=== PATIENT | female | born 1945 | race Caucasian/White ===

== ENCOUNTER 2017-01-06 07:56 | Observation (INO) | payer BC ==
[~2017-01-06] VITALS: Ht 165.1 cm; Wt 79.9 kg
--- NOTE | ~2017-01-06 | OP ---
Record Of Operation [facility] [address] [place]. [address] NAME: PEDRO GEE : 47 STATUS : ADM Irwin PAT#: [id number] AGE: 71 ADM/REG DATE : 01/06/17 MR#: [id number] REPORT SERV DATE: 01/06/17 DICTATED BY: FIONA MERINO DATE: 01/06/17 REPORT STATUS : Draft TRANSCRIBED BY: MODL DATE: 01/06/17 DATE OF PROCEDURE: 01/06/2017 PREOPERATIVE DIAGNOSIS: Recurrent hiatal hernia with dysphagia. POSTOPERATIVE DIAGNOSIS: Recurrent hiatal hernia with dysphagia. PROCEDURE: Laparoscopic redo hiatal hernia repair with mesh. RESIDENT: Francia. ANESTHESIA: General. ESTIMATED BLOOD LOSS: 10 mL. IV FLUIDS: 1500 mL. SPECIMENS: None. COMPLICATIONS: None. BRIEF HISTORY: Ms. Gee is a 71-year-old woman who had a laparoscopic hiatal hernia repair with Toupet fundoplication in [place] five years ago. She presented with a two-month history of progressive dysphagia. Endoscopy and barium swallow confirmed hiatal hernia. Laparoscopic redo repair was recommended. The procedure with the risks including bleeding, infection, injury to the vagus nerves causing decreased gastric emptying, dysphagia postop and recurrence were all explained. She agreed to proceed. DESCRIPTION OF PROCEDURE: After consent was obtained, she was taken to the operating room and placed in supine position on the operating table. General endotracheal anesthesia was administered. The abdomen was then prepped and draped in normal sterile fashion. Preoperative antibiotics were administered. SCDs were placed. Time-out was performed. We began by making an incision superior and left lateral to the umbilicus using a #15 blade scalpel. Electrocautery was then used to dissect through the subcutaneous tissues. Optiview technique was used to insert an 11 mm trocar. The abdomen was insufflated to 15 mmHg of CO2 gas. The scope was inserted. There was no evidence of injury upon placement of trocar. After infiltration of local anesthesia and under direct visualization, an 11 mm trocars placed in the medial left upper quadrant followed by a 5 mm trocar in the lateral left upper quadrant. Two 5 mm trocars were placed in the right upper quadrant. She was placed in reverse Trendelenburg position. Liver retractor was placed through the lateral 5 mm trocar on the right to elevate the left lobe of the liver. There were adhesions from the liver down to the stomach. We began by dissecting these adhesions away from the liver to expose the right katina. This was done sharply using scissors. Once the right katina was exposed, we were able to dissect Record Of Operation [facility] [address] [place]. [address] NAME: PEDRO GEE : 47 STATUS : ADM Irwin PAT#: [id number] AGE: 71 ADM/REG DATE : 01/06/17 MR#: [id number] REPORT SERV DATE: 01/06/17 DICTATED BY: FIONA MERINO JACQUELIN DATE: 01/06/17 REPORT STATUS : Draft TRANSCRIBED BY: MODL DATE: 01/06/17 into the mediastinum to some degree and identified the wrap that had slid into the back into the chest. She had a large hiatal defect. We then dissected along the right katina down dissecting the wrap away from the katina using combination of blunt dissection and electrocautery. Once we had done as much mobilization as possible in the site, we then proceeded to the left katina. We then retracted this stomach to the right and then dissected the wrap away from the left katina using sharp dissection. We then able to extend this into the mediastinum to free up the attachments at that site. We then worked on the posterior, which was the most adhered area. It was adhered densely and sutured to the right katina and the sutures were taken out using scissors and then the dissection was undertaken to dissect this away from the crural repair. Most of the failed repair was in the mid to superior aspect of the previous repair. The lower portion of the repair was still intact. Once it was completely dissected, we placed a Emelina drain around the esophagus within the chest and secured it anteriorly using clips and used this for retraction and back into the abdomen and anteriorly to free up the mediastinal adhesions to allow increased length on the esophagus. Once we had adequate length in the esophagus to be back in the abdomen, we inspected the posterior vagus nerve and it was intact. We did not confidently identify the anterior vagus nerve. Then turned our attention to the repair. We reapproximated the hiatus using two figure-of- eight 0 Ethibond sutures using the suture assist device. We placed the one single interrupted suture just beneath the esophagus to ensure that the hiatus was closed, yet there was still adequate space for the esophagus to expand at that site. We then fashioned a Strattice mesh 8 x 8 cm with a small keyhole and placed it within the abdomen. It was secured anteriorly to both the right and the left katina cephalad to the esophagus using 0 Ethibond sutures. We then inspected the wrap. The wrap that was previously placed was still intact and now it was back in the abdomen and appeared sufficient and it was not revised. We then removed all trocars and the Emelina drain under direct visualization. There was no evidence of bleeding. The abdomen was desufflated. All skin incisions were closed using a 4-0 Monocryl subcuticular stitch. The abdomen was cleaned and Dermabond was applied. The patient tolerated the procedure well and was extubated in the operating room and sent to the recovery room in stable condition. WG/MODL Fiona Merino MD / [id number] CC: Fiona Merino MD
[~2017-01-06 07:56] MED LIST: ANADS PO; ASAB PO; CALCIUM PO; CALCIUM/MAG/ZINC; CRAN CONC500 MG PO; DIABET1.25 PO; FERROUS SULF325 M1 PO; GLUCOPHAGE1000 MG PO; GLUCXL5; GLUCXL5 PO; LYRICA150 MG PO; MACROBID PO; MAG PO; MAX25 PO; MIRAPEX5 PO; MULTIVITAMI1 PO; NEUR100 PO; PCET PO; PLAVIX PO; POTASSIUM GLUCO99 MG PO; PREV30 PO; PRILOSEC40 MG PO; PRIN5 PO; RANITIDINE300 MG PO; REQUIP1 PO; STOOL SOFTEN100 MG PO; TRAZ50 PO; VESICARE5 PO; VITAMIN D1000 UNI1 PO; VITAMIN D31000 UNIT PO; ZOCOR20 PO
[2017-01-06 13:50] LABS: BASOPHILS 0.1 %; BASOPHILS ABSOLUTE 0.02 10/3/uL (0.0-0.16); EOSINOPHILS 0.4 %; EOSINOPHILS ABSOLUTE 0.06 10/3/uL (0.0-0.53); HEMATOCRIT 34.4 % (36.0-48.0); HEMOGLOBIN 11.2 g/dL (12.0-16.0); IMMATURE GRANULOCYTES 0.2 %; IMMATURE GRANULOCYTES ABSOLUTE 0.03 10/3/uL (0.0-0.11); LYMPHOCYTES 11.3 %; LYMPHOCYTES ABSOLUTE 1.53 10/3/uL (0.67-4.30); MEAN CORPUS HGB CONC 32.6 g/dL (32.0-36.0); MEAN CORPUSCULAR HEMOGLOB 25.9 pg (26.0-34.0); MONOCYTES 4.2 %; MONOCYTES ABSOLUTE 0.56 10/3/uL (0.21-1.20); NEUTROPHILS 83.8 %; NEUTROPHILS ABSOLUTE 11.29 10/3/uL (2.02-8.40); PLATELET COUNT 279 10/3/uL (150-400); RBC DISTRIBUTION WIDTH 16.1 % (12.0-16.0); RED CELL COUNT 4.33 10/6/uL (4.0-5.6); WHITE BLOOD CELLS 13.5 10/3/uL (4.5-10.5)
[2017-01-06 13:51] LABS: MANUAL DIFF NO %; MEAN CORPUSCULAR VOLUME 79.4 fL (80-100)
[2017-01-06 14:13] LABS: BUN (BLOOD UREA NITROGEN) 16 MG/DL (6-23); CALCIUM, SERUM 8.6 MG/DL (8.5-10.4); CHLORIDE, SERUM 99 MMOL/L (96-112); CO2 (CARBON DIOXIDE) 29 MMOL/L (24-34); CREATININE 0.86 MG/DL (0.55-1.02); GFR AFRICAN AMERICAN 79 ML/MIN (>=60); GFR NON AFRICAN AMERICAN 68 ML/MIN (>=60); POTASSIUM, SERUM 3.8 MMOL/L (3.5-5.3); SODIUM, SERUM 134 MMOL/L (135-148)
[2017-01-06 14:14] LABS: GLUCOSE, SERUM 214 MG/DL (60-99)
== END 2017-01-07 16:24 | disposition home or self-care (01) ==
LOC: ENRESERV → ENRESERVTM → ENRESERVDT → SDC 07:56 → SDC/OF 13:47 → 5SO 14:06
PROVIDERS: Surgery
PROC: 0BUR4JZ (ICD-10-PCS; 2017-01-06)
PROC: 0BUS4JZ (ICD-10-PCS; principal; 2017-01-06 09:15)
DX: K44.9 Diaphragmatic hernia without obstruction or gangrene (principal); I10 Essential (primary) hypertension; I73.9 Peripheral vascular disease, unspecified; E11.9 Type 2 diabetes mellitus without complications; E78.00 Pure hypercholesterolemia, unspecified; K21.9 Gastro-esophageal reflux disease without esophagitis; M19.90 Unspecified osteoarthritis, unspecified site; G40.909 Epilepsy, unspecified, not intractable, without status epilepticus; H40.9 Unspecified glaucoma; Z85.01 Personal history of malignant neoplasm of esophagus; Z87.891 Personal history of nicotine dependence; Z90.49 Acquired absence of other specified parts of digestive tract; Z90.710 Acquired absence of both cervix and uterus; Z90.722 Acquired absence of ovaries, bilateral; Z79.84 Long term (current) use of oral hypoglycemic drugs; Z79.899 Other long term (current) drug therapy; Z98.890 Other specified postprocedural states
CPT/HCPCS: 80048; 82962; 85014; 85018; 85025; 93005; 96372; A9270-GY; G0378; J0690; J2250; J2370; J2405; J2550; J2710; J3010; Q4130